=== PATIENT | female | born 1960 | race Caucasian/White ===

== ENCOUNTER 2023-11-21 11:41 | Emergency (ER) | payer OTHER ==
[~2023-11-21] VITALS: Ht 162.6 cm; Wt 67.0 kg
[2023-11-21 12:54] LABS: BILIRUBIN,URINE NEGATIVE (Neg); CLARITY,URINE SLIGHTLY CLOUDY (Clear); COLOR,URINE YELLOW (Yellow); GLUCOSE, URINE NEGATIVE (Neg); KETONES,URINE TRACE mg/dl (Neg); LEUKOCYTE ESTERASE ,URINE NEGATIVE (Neg); NITRITES, URINE NEGATIVE (Neg); OCCULT BLOOD,URINE TRACE-INTACT (Neg); PH,URINE 5.5 (4.8-8.0); PROTEIN,URINE NEGATIVE (Neg); UROBILINOGEN,URINE 0.2 E.U/dL (0.2-1.0)
[2023-11-21 12:55] LABS: UA COLLECTION TYPE CLN CATCH MIDSTREAM
[2023-11-21 13:06] LABS: SQUAMOUS EPITHELIAL CELL,UR MANY /LPF (FEW)
[2023-11-21 13:07] LABS: BACTERIA,URINE FEW /HPF (Neg); RBC,URINE 0-2 /HPF (0-2); WBC,URINE 0-4 /HPF (0-4)
[2023-11-21 13:08] LABS: YEAST FEW /HPF (NEGATIVE)
[2023-11-21 13:12] VITALS: TEMP 98.4
[2023-11-21] MEDS ORDERED: iohexol 300mg/ml 100ml inj. ONE (14:01)
[2023-11-21 14:06] LABS: BASOPHILS % (AUTO) 0.5 % (0-1); EOSINOPHILS % (AUTO) 0.5 % (0-6); HEMOGLOBIN 13.1 g/dl (12.0-16.0); LYMPHOCYTES # (AUTO) 1.6 X10'3 (1.1-4.8); LYMPHOCYTES % (AUTO) 19.3 % (21-51); MEAN CORPUSCULAR HEMOGLOBIN 31.8 PG (27.0-31.0); MEAN CORPUSCULAR HGB CONC 34.4 g/dL (33.0-36.5); MEAN CORPUSCULAR VOLUME 92.6 FL (78-98); MEAN PLATELET VOLUME 7.6 FL (7.4-10.4); MONOCYTES # (AUTO) 0.6 X10'3 (0-0.9); MONOCYTES % (AUTO) 7.9 % (2-12); NEUTROPHILS # (AUTO) 5.9 X10'3 (1.8-7.7); NEUTROPHILS % (AUTO) 71.8 % (42-75); PLATELET COUNT 210 X10'3 (140-440); RED BLOOD COUNT 4.11 X10'6 (4.20-5.60); RED CELL DISTRIBUTION WIDTH 13.1 % (11.5-14.5); WHITE BLOOD COUNT 8.2 X10'3 (4.5-11.0)
[2023-11-21 14:07] LABS: ALANINE AMINOTRANSFERASE 41 U/L (12-78); ALBUMIN 3.3 G/DL (3.4-5.0); ALBUMIN/GLOBULIN RATIO 0.8 (1.1-1.5); ALKALINE PHOSPHATASE 90 IU/L (46-116); ANION GAP 11 (8-16); ASPARTATE AMINO TRANSFERASE 33 U/L (10-37); BILIRUBIN,TOTAL 0.5 MG/DL (0.1-1.0); BLOOD UREA NITROGEN 16 MG/DL (7-18); BUN/CREATININE RATIO 17.6 (10.0-20.0); CALCIUM 9.2 MG/DL (8.5-10.1); CHLORIDE 101 MMOL/L (99-107); CREATININE 0.91 MG/DL (0.40-0.90); GLUCOSE 109 MG/DL (70-104); POTASSIUM 4.2 MMOL/L (3.5-5.1); SODIUM 134 MMOL/L (135-145); TOTAL CARBON DIOXIDE 22.5 MMOL/L (24-32); TOTAL PROTEIN 7.6 G/DL (6.4-8.2); eCRCL 56 ML/MIN; eGFR 63 ML/MIN
[2023-11-21] MEDS: normal saline 1000ML IV soln IVB ONE (14:21)
[2023-11-21] MEDS ORDERED: ketorolac trometh. 30mg/ml inj. IV ONE (15:25)
[2023-11-21] MEDS: ketorolac tromethamine 15mg/ml inj. IV ONE (15:33)
[2023-11-21] MEDS ORDERED: FLO0.4C PO (16:55)
[2023-11-21] MEDS ORDERED: ONDA8TAB13 PO (16:55)
[2023-11-21] MEDS ORDERED: POTA-280 PO (16:55)
[2023-11-21] MEDS ORDERED: HYDR-3973 PO (16:55)
[2023-11-21] MEDS ORDERED: IBUP-1986 PO (16:55)
[2023-11-21] MEDS: HYDROcodone/acetaminophen 10/325mg tab PO ONE (17:41)
[2023-11-21] MEDS: tamsulosin 0.4mg capsule PO ONE (17:41)
[2023-11-21] MEDS: ondansetron 4mg rapidly disintigrating tab PO ONE (17:42)
[2023-11-21 18:24] VITALS: BP 165/70; PULSE 78; RESP 16; O2SAT 98
== END 2023-11-21 18:28 | disposition home or self-care (01) ==
LOC: ER 11:42
DX: N13.2 Hydronephrosis with renal and ureteral calculous obstruction (principal); R11.2 Nausea with vomiting, unspecified; R10.9 Unspecified abdominal pain
CPT/HCPCS: 36415; 74018; 74178; 80053; 81001; 85025; 96361; 96374; 99285; J1885; J3490; J7030; Q9967